=== PATIENT | male | born 1950 | race Caucasian/White ===

== ENCOUNTER → 2018-09-26 | Outpatient (CLI) | payer MEDICARE ==
[2018-09-26 12:09] LABS: Basophils % (A) 1 %; Eosinophils # (A) 0.1 k/uL (0-0.7); Eosinophils % (A) 2 %; HCT 43.4 % (39.0-53.0); HGB 14.4 gm/dL (13.0-17.5); Lymphocytes # (A) 1.3 k/uL (1.0-4.8); Lymphocytes % (A) 27 %; MCH 31.1 pg (25.0-35.0); MCHC 33.3 g/dL (31.0-37.0); MCV 93.5 fL (80.0-100.0); Mean Platelet Volume 7.4; Monocytes # (A) 0.4 k/uL (0-1.0); Monocytes % (A) 8 %; Neutrophils # (A) 2.8 k/uL (1.3-7.7); Neutrophils % (A) 59 %; Platelet Count 238 k/uL (150-450); RBC 4.64 m/uL (4.30-5.90); RDW 13.3 % (11.5-15.5); WBC 4.7 k/uL (3.8-10.6)
[2018-09-26 12:18] LABS: Anion Gap 7 mmol/L; Blood Urea Nitrogen 20 mg/dL (9-20); Calcium 9.8 mg/dL (8.4-10.2); Carbon Dioxide 29 mmol/L (22-30); Chloride 103 mmol/L (98-107); Glucose 84 mg/dL (74-99); Potassium 4.7 mmol/L (3.5-5.1); Sodium 139 mmol/L (137-145)
[2018-09-26 12:19] LABS: INR 1.1 (<1.2); Prothrombin Time 11.5 sec (9.0-12.0)
== END | disposition home or self-care (01) ==
LOC: LABWHC1 11:00
PROVIDERS: ATTEND Internal Medicine
DX: I48.91 Unspecified atrial fibrillation (principal)
CPT/HCPCS: 36415; 80048; 85025; 85610

== ENCOUNTER 2021-01-13 03:14 | Observation (INO) | payer MEDICARE ==
--- NOTE | 2021-01-13 03:48 | ED ---
Chest Pain HPI - General Chief Complaint: Shortness of Breath Stated Complaint: upper abdominal pain Time Seen by Provider: 01/13/21 03:25 Source: patient Mode of arrival: ambulatory Limitations: no limitations - History of Present Illness Initial Comments: This patient is 70-year-old man with history of chronic atrial fibrillation, presenting to be evaluated for substernal chest pain. He states that the pain has been present couple of hours tonight. It developed volume was lying in bed. It is substernal/epigastric. He states he also noted palpitations and that pain seemed worse when heart was racing. There was some associated nausea Patient denies dyspnea, diaphoresis, lightheadedness or syncope. Patient did take antacid and Tylenol but the symptoms remain. He had similar episode yesterday, took the same medications and the pain resolved. MD Complaint: chest pain -: hour(s) Onset: during rest Pain Location: epigastric Pain Radiation: none Severity scale (1-10): 6 Quality: dull Consistency: constant Improves With: nothing Worsens With: nothing Anginal Symptoms: nausea Treatments Prior to Arrival: other (Tylenol/antacid) - Related Data On Oral Contraceptives: No Allergies Allergy/AdvReac Type Severity Reaction Status Date / Time No Known Allergies Allergy Verified 01/13/21 03:24 Review of Systems ROS Statement: Those systems with pertinent positive or pertinent negative responses have been documented in the HPI. ROS Other: All systems not noted in ROS Statement are negative. Constitutional: Denies: fever, chills Respiratory: Reports: dyspnea. Denies: cough Cardiovascular: Reports: chest pain, palpitations. Denies: edema, syncope Gastrointestinal: Reports: nausea. Denies: abdominal pain, vomiting, diarrhea Genitourinary: Denies: dysuria Musculoskeletal: Denies: back pain Skin: Denies: rash Neurological: Denies: headache, weakness EKG Findings - EKG Results: EKG: interpreted by ERMD, normal axis, normal QRS, normal ST/T EKG shows: atrial fibrillation Past Medical History Past Medical History: Atrial Fibrillation, Hyperlipidemia, Hypertension, Rheumatoid Arthritis (RA) History of Any Multi-Drug Resistant Organisms: None Reported Past Surgical History: Appendectomy, Hernia Repair Smoking Status: Former smoker Past Alcohol Use History: Occasional Past Drug Use History: None Reported General Exam Limitations: no limitations General appearance: alert, in no apparent distress Head exam: Present: atraumatic, normocephalic Eye exam: Present: normal appearance. Absent: scleral icterus, conjunctival injection ENT exam: Present: normal oropharynx Neck exam: Present: normal inspection Respiratory exam: Present: normal lung sounds bilaterally. Absent: respiratory distress, wheezes, rales, rhonchi, stridor Cardiovascular Exam: Present: irregular rhythm, normal heart sounds. Absent: systolic murmur, diastolic murmur, rubs, gallop GI/Abdominal exam: Present: soft. Absent: distended, tenderness, guarding, rebound, rigid, mass Extremities exam: Present: normal inspection, normal capillary refill. Absent: pedal edema, calf tenderness Back exam: Present: normal inspection. Absent: CVA tenderness (R), CVA tenderness (L) Neurological exam: Present: alert Skin exam: Present: warm, dry, intact, normal color. Absent: rash Course Vital Signs 01/13/21 01/13/21 01/13/21 03:18 04:09 05:00 Temperature 98.0 F Pulse Rate 89 91 Respiratory 20 18 18 Rate Blood Pressure 116/85 110/76 O2 Sat by Pulse 98 Oximetry 01/13/21 06:00 Temperature Pulse Rate 98 Respiratory 18 Rate Blood Pressure 106/81 O2 Sat by Pulse Oximetry Chest Pain MDM - MDM Patient is 70-year-old man with 2 episodes of chest pain over the past couple of days. While here in emergency department, his symptoms have resolved and he is symptom-free now. 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 I did discuss with the transfer team at [facility] and at this time they are not accepting elective transfers, only those requiring higher level of care. Discussed this with patient and family and they'll be admitted here for further workup. Disposition Clinical Impression: Chest pain, Atrial fibrillation Disposition: ADMITTED IP TO THIS HOSP Condition: Fair Referrals: Usman Quintanilla DO [Primary Care Provider] - 1-2 days
[2021-01-13 04:22] LABS: Basophils % (A) 0 %; Eosinophils # (A) 0.2 k/uL (0-0.7); Eosinophils % (A) 2 %; HCT 47.3 % (39.0-53.0); HGB 15.8 gm/dL (13.0-17.5); Lymphocytes # (A) 1.5 k/uL (1.0-4.8); Lymphocytes % (A) 18 %; MCH 32.9 pg (25.0-35.0); MCHC 33.4 g/dL (31.0-37.0); MCV 98.3 fL (80.0-100.0); Mean Platelet Volume 7.9; Monocytes # (A) 0.5 k/uL (0-1.0); Monocytes % (A) 6 %; Neutrophils % (A) 72 %; Platelet Count 210 k/uL (150-450); RBC 4.81 m/uL (4.30-5.90); RDW 13.6 % (11.5-15.5); WBC 8.4 k/uL (3.8-10.6)
[2021-01-13 04:36] LABS: ALT 18 U/L (4-49); AST 26 U/L (17-59); African American GFR (CKD) >90 (>60 ml/min/1.73 sqM); Albumin 4.2 g/dL (3.5-5.0); Alkaline Phosphatase 55 U/L (38-126); Amylase 75 U/L (30-110); Anion Gap 9 mmol/L; Blood Urea Nitrogen 19 mg/dL (9-20); Calcium 10.1 mg/dL (8.4-10.2); Carbon Dioxide 22 mmol/L (22-30); Chloride 106 mmol/L (98-107); Glucose 106 mg/dL (74-99); Lipase 281 U/L (23-300); Magnesium 1.9 mg/dL (1.6-2.3); Non-African American GFR(CKD) 86 (>60 ml/min/1.73 sqM); Potassium 4.1 mmol/L (3.5-5.1); Sodium 137 mmol/L (137-145); Total Bilirubin 1.2 mg/dL (0.2-1.3); Total Protein 6.6 g/dL (6.3-8.2)
[2021-01-13 04:41] LABS: Partial Thromboplastin Time 24.4 sec (22.0-30.0); Prothrombin Time 11.1 sec (9.0-12.0)
--- NOTE | 2021-01-13 05:10 | XR ---
EXAMINATION TYPE: XR chest 1V portable DATE OF EXAM: 01/13/2021 COMPARISON: NONE HISTORY: Chest pain TECHNIQUE: Single view FINDINGS: Heart appears enlarged. There is no heart failure. There are chest leads. Costophrenic angl es are clear. IMPRESSION: No active cardiopulmonary disease.
[2021-01-13 06:21] VITALS: RESP 18
[2021-01-13] MEDS ORDERED: NITROGLYCERIN SL TABS 0.4 MG TAB SUBLINGUAL PRN (06:46)
[2021-01-13] MEDS ORDERED: SODIUM CHLORIDE 0.9% 1,000 ML IV SCH (07:00)
[2021-01-13] MEDS ORDERED: APIXABAN 5 MG TAB PO SCH (09:15)
[2021-01-13] MEDS ORDERED: METOPROLOL SUCCINATE (ER) 100 MG TAB.ER.24H PO SCH (09:15)
[2021-01-13] MEDS ORDERED: LOSARTAN 50 MG TAB PO SCH (09:15)
--- NOTE | 2021-01-13 10:12 | P.CRDCN ---
History of Present Illness History of present illness: HISTORY OF PRESENTING ILLNESS This is a pleasant 70-year-old male past medical history significant for persistent atrial fibrillation, non-ischemic cardiomyopathy EF around 35% per patient From Echocardiogram in November 2020, mitral valve prolapse, hypertension, hyperlipidemia, ventricular tachycardia. He follows with a photographer model at [facility] Dr. Leonardo. We have been asked to see in consultation for chest pain. Patient is seen and examined at bedside. Patient states Monday night going into Monday had midsternal chest pain. Describes it as a pressure. Woke him up that night. Non-radiating. Non-exertional. States he thought it was indigestion and took Tums, with no relief. He then took some Tylenol and did have some relief. Monday night going into Monday night he had similar symptoms, however, this time Tylenol and Tums did not help relieve and he decided to present to the emergency department. He did have associated nausea. He denies associated symptoms of diaphoresis, palpitations, shortness of breath. No specific alleviating or aggravating factors. He denies symptoms of orthopnea, PND, lower extremity edema, fatigue, weakness, lightheadedness, syncope. Denies alcohol use. Used tobacco in high school, non smoker currently. He denies history of [place], Stroke, Diabetes, or coronary artery disease. He states he had an echocardiogram in early November 2020, and was told his ejection fraction decreased to around 35%. His hydrochlorothiazide was discontinued. He also was told his atrial fibrillation was not controlled and his beta hernandez was increased. He staes his last cardiac catheterization was in 2015, which he was told had normal coronary arteries. He states his last stress test was about 3 years ago, he has only undergone stress echo tests and he has a history of having ventricular tachycardia, and his stress test needs to be ended early. He also recently has had a 2 week monitor completed and has a follow up appointment with EP on MondayJanuary 18. DIAGNOSTICS EKG reveals atrial fibrillation, heart rate 93, PVC, no evidence of ischemia. No prior EKG to compare Telemetry tracings indicate atrial fibrillation with controlled ventricular rates Chest xray no acute cardiopulmonary process. Laboratory reviewed, troponin negative 2, CBC unremarkable, sodium 137, potassium 4.1, BUN 19, serum creatinine 0.9, liver enzymes within normal limits, magnesium 1.9, proBNP 1440, lipase within normal limits, amylase within normal limits, COVID-19 PCR negative Current home cardiac medications include Eliquis 5 mg twice a day, olmesartan 10 mg daily, simvastatin 20 mg nightly, metoprolol succinate 100 mg twice a day REVIEW OF SYSTEMS At the time of my exam: CONSTITUTIONAL: Denies fever or chills. CARDIOVASCULAR: +epigastric/midsternal chest pain, Denies shortness of breath, orthopnea, PND or palpitations. RESPIRATORY: Denies cough. GASTROINTESTINAL: +nausea Denies abdominal pain, diarrhea, constipation, vomiting. MUSCULOSKELETAL: Denies myalgias. NEUROLOGIC: Denies numbness, tingling, headacbe or weakness. ENDOCRINE: Denies fatigue, weight change, polydipsia or polyurina. GENITOURINARY: Denies burning, hematuria or urgency with micturation. HEMATOLOGIC: Denies history of anemia or bleeding. PHYSICAL EXAMINATION Blood pressure 118/78 heart rate 110 afebrile and maintaining oxygen saturation 97% on room air CONSTITUTIONAL: No apparent distress. HEENT: Head is normocephalic. Pupils are equal, round. Sclerae anicteric. Mucous membranes of the mouth are moist. No JVD. No carotid bruit. CHEST EXAMINATION: Lungs are clear to auscultation. No chest wall tenderness is noted on palpation or with deep breathing. HEART EXAMINATION: Irregular rate and rhythm. S1, S2 heard. Systolic murmur at apex ABDOMEN: Soft, nontender. Positive bowel sounds. EXTREMITIES: 2+ peripheral pulses, no lower extremity edema and no calf tend erness. SKIN: no rashes or wounds present NEUROLOGIC EXAMINATION: Patient is awake, alert and oriented x3. ASSESSMENT Chest pain, atypical Persistent atrial fibrillation on Eliquis Hypertension Hyperlipidemia History of Nonischemic cardiomyopathy Former tobacco use PLAN An acute coronary event has been ruled out with no EKG evidence of ischemia and negative cardiac enzymes. Obtain Ultrasound of Gallbladder No further cardiac testing at this time. Patient with recent Echocardiogram November 26. He also recently has had a 2 week monitor completed and has a follow up appointment with EP on MondayJanuary 18. If Ultrasound, with no acute findings, ok to discharge from cardiology perspective, and patient can follow up with Dr. Leonardo as an outpatient. Follow up with primary photographer model Dr. Leonardo Thank you kindly for this consultation. Nurse Practitioner note has been reviewed, I agree with a documented findings and plan of care. Patient was seen and examined. Past Medical History Past Medical History: Atrial Fibrillation, Hyperlipidemia, Hypertension, Rheumatoid Arthritis (RA) History of Any Multi-Drug Resistant Organisms: None Reported Past Surgical History: Appendectomy, Hernia Repair Smoking Status: Former smoker Past Alcohol Use History: Occasional Past Drug Use History: None Reported Medications and Allergies Home Medications Medication Instructions Recorded Confirmed Type Apixaban [Eliquis] 5 mg PO BID 01/13/21 01/13/21 History Cholecalciferol [Vitamin D3 (25 100 mcg PO W/SUPPER 01/13/21 01/13/21 History Mcg = 1000 Iu)] Metoprolol Succinate (ER) [Toprol 100 mg PO BID 01/13/21 01/13/21 History XL] Multivit-Min/FA/Lycopen/Lutein 1 tab PO W/SUPPER 01/13/21 01/13/21 History [Centrum Silver Men Tablet] Niacin (Inositol Niacinate) 500 mg PO W/SUPPER 01/13/21 01/13/21 History [Niacin 500 mg Capsule] Olmesartan Medoxomil 10 mg PO DAILY 01/13/21 01/13/21 History Simvastatin [Zocor] 20 mg PO HS 01/13/21 01/13/21 History Allergies Allergy/AdvReac Type Severity Reaction Status Date / Time No Known Allergies Allergy Verified 01/13/21 07:09 Physical Exam Vitals: Vital Signs Temp Pulse Resp BP Pulse Ox 01/13/21 07:18 101 H 18 106/86 95 01/13/21 06:00 98 18 106/81 01/13/21 05:00 91 18 110/76 01/13/21 04:09 18 01/13/21 03:18 98.0 F 89 20 116/85 98 Intake and Output 01/12/21 01/13/21 01/13/21 22:59 06:59 14:59 Other: Weight 97.522 kg Results 01/13/21 03:37 01/13/21 03:37 Cardiac Enzymes 01/13/21 01/13/21 Range/Units 03:37 03:37 AST 26 (17-59) U/L Troponin I <0.012 (0.000-0.034) ng/mL Coagulation 01/13/21 Range/Units 03:37 PT 11.1 (9.0-12.0) sec APTT 24.4 (22.0-30.0) sec CBC 01/13/21 Range/Units 03:37 WBC 8.4 (3.8-10.6) k/uL RBC 4.81 (4.30-5.90) m/uL Hgb 15.8 (13.0-17.5) gm/dL Hct 47.3 (39.0-53.0) % Plt Count 210 (150-450) k/uL Comprehensive Metabolic Panel 01/13/21 Range/Units 03:37 Sodium 137 (137-145) mmol/L Potassium 4.1 (3.5-5.1) mmol/L Chloride 106 (98-107) mmol/L Carbon Dioxide 22 (22-30) mmol/L BUN 19 (9-20) mg/dL Creatinine 0.90 (0.66-1.25) mg/dL Glucose 106 H (74-99) mg/dL Calcium 10.1 (8.4-10.2) mg/dL AST 26 (17-59) U/L ALT 18 (4-49) U/L Alkaline Phosphatase 55 (38-126) U/L Total Protein 6.6 (6.3-8.2) g/dL Albumin 4.2 (3.5-5.0) g/dL Current Medications Generic Name Dose Route Start Last Admin Trade Name Freq PRN Reason Stop Dose Admin Aspirin 325 mg 01/14/21 09:00 Aspirin 325 Mg Tab PO DAILY ALYSON Sodium Chloride 1,000 mls @ 20 mls/hr 01/13/21 07:00 01/13/21 07:16 Saline 0.9% IV 20 mls/hr .Q24H ALYSON Administration Nitroglycerin 0.4 mg 01/13/21 06:46 Nitroglycerin Sl Tabs 0.4 Mg Tab SUBLINGUAL Q5M PRN Chest Pain Intake and Output 01/12/21 01/13/21 01/13/21 22:59 06:59 14:59 Other: Weight 97.522 kg 01/13/21 03:37 01/13/21 03:37
[2021-01-13 14:49] VITALS: BP 125/67; PULSE 109; TEMP 97.6
--- NOTE | 2021-01-13 15:05 | US ---
EXAMINATION TYPE: US gallbladder DATE OF EXAM: 01/13/2021 COMPARISON: Abdominal x-ray 2014 CLINICAL HISTORY: epigastric pain, nausea. previous one other episode of epigastric pain noted during night; AFIB per patient. EXAM MEASUREMENTS: Liver Length: 15.4 cm Gallbladder Wall: 0.6 cm CBD: 0.5 cm Right Kidney: 11.4 x 5.0 x 4.8 cm Pancreas: hyperechoic, tail obscured by overlying bowel gas Liver: right lobe liver cyst seen = 1.4 x 1.5 x 1.5cm Gallbladder: mildly echogenic contents suggestive of sludge; hyperechoic focus seen mid wall suggest s wall polyp; thickened wall is noted throughout Evidence for sonographic Pérez's sign: no CBD: wnl Right Kidney: No hydronephrosis or masses seen Visualized pancreas appears within normal limits. Visualized liver shows incidental 1.4 cm thin-soni d cyst. No shadowing mobile gallstones. No right-sided hydronephrosis. Possible focal hyper cholester olosis. Mild areas of wall thickening up to 6 mm. IMPRESSION: No shadowing mobile gallstones. 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 Cannot exclude slud ge. No convincing ultrasound evidence for acute cholecystitis. Consider HIDA scan if clinical suspici on persists.
--- NOTE | 2021-01-13 19:44 | HP ---
HISTORY AND PHYSICAL HISTORY AND PHYSICAL AND DISCHARGE SUMMARY.: CHIEF COMPLAINT: Epigastric pain. HISTORY OF PRESENT ILLNESS: This 70-year-old gentleman with a past medical history of multiple medical problems including atrial fibrillation, history of hypertension, hyperlipidemia, history of rheumatoid arthritis, being followed by Dr. Quintanilla and Cardiology elsewhere, was admitted with lower chest pain and epigastric pain. The patient was evaluated by Cardiology. Cardiology recommended continued outpatient followup. An ultrasound of the gallbladder did not show any acute abnormality, but reported sludge cannot be ruled out. Recommended outpatient HIDA scan at this time. The patient was seen by medical leader and as well as Cardiology at [facility]. The patient is on Eliquis. There is no history of fever, rigors, headache, loss of consciousness or seizures at this time. PAST MEDICAL HISTORY: History of atrial fibrillation, hypertension, history of hyperlipidemia, rheumatoid arthritis, appendectomy, hernia repair, cardiac catheterization March 2016, cardioversion. MEDICATION: Home medications are: Niacin, multivitamin, cholecalciferol, Zocor. Olmesartan, Metoprolol, Eliquis. ALLERGIES: None. FAMILY HISTORY: No history of heart disease or strokes in the family. SOCIAL HISTORY: No history of smoking. Occasional alcohol. REVIEW OF SYSTEMS: ENT: No diminished hearing. No diminished vision. CARDIOVASCULAR system: As mentioned earlier. RESPIRATION as mentioned earlier. GI: As mentioned earlier. : No dysuria or hematuria. NERVOUS SYSTEM: No numbness, weakness. ALLERGY/IMMUNOLOGY: No asthma or hayfever. MUSCULOSKELETAL: As mentioned earlier. HEMATOLOGY/ONCOLOGY: No history of anemia. ENDOCRINE: No history of diabetes or hypothyroidism. CONSTITUTIONAL: As mentioned earlier. DERMATOLOGY: Negative. RHEUMATOLOGY negative. PSYCHIATRIC: As mentioned earlier. PHYSICAL EXAMINATION: The patient is alert and oriented times three. Pulse 109, blood pressure 120/56, respiration 18, temperature 97.6, pulse ox 94% on room air. HEENT: Conjunctivae normal. NECK: No JVD. CARDIOVASCULAR: S1, S2 muffled. RESPIRATION: Breath sounds diminished in the bases. Scattered rhonchi. No crackles. ABDOMEN: Soft, nontender. No mass palpable. LEGS: No edema. No swelling. NERVOUS SYSTEM: Higher functions as mentioned earlier. Moves all 4 limbs. No focal motor or sensory deficits. LYMPHATICS: No lymph nodes palpable in the neck, axillae or groin. SKIN: No ulcer, no rash and no bleeding. JOINTS: No active deforming arthropathy. LABS: CBC within normal limits and glucose 106. Other labs are noted. Troponins are negative. ASSESSMENT: 1. Chest pain and epigastric pain, myocardial infarction ruled out, possible gastroesophageal reflux disease. 2. 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 No acute abnormality. 3. Persistent atrial fibrillation. 4. Hypertension. 5. Hyperlipidemia. 6. History of nonischemic cardiomyopathy. 7. History of nicotine dependence. RECOMMENDATIONS AND DISCUSSION: This 70-year-old gentleman who presented with multiple medical issues. I recommend to continue the current medications, symptomatic treatment. Otherwise, I would also recommend follow up with garnetter at [facility] as recommended by Cardiology here. Otherwise, resume the home medications. Recommend a short course of proton pump inhibitors. Outpatient HIDA scan to completely rule out any gallbladder pathology because of the gallbladder ultrasound report here. Otherwise, the prognosis guarded because of multiple complex medical issues. Discussed with the patient and family who understands and agrees. A copy of dictation being forwarded to Dr. Quintanilla who is the primary physician. MMODL / IJN: [id number] /
[2021-01-13] MEDS ORDERED: ATORVASTATIN 10 MG TAB PO SCH (21:00)
[2021-01-14] MEDS ORDERED: ASPIRIN 325 MG TAB PO SCH (09:00)
== END 2021-01-13 18:35 | disposition home or self-care (01) ==
LOC: EC 03:14 → 6NMEDSUR 06:46
PROVIDERS: ADMIT Hospitalist; ATTEND Hospitalist
DX: R07.89 Other chest pain (principal); R10.13 Epigastric pain; R11.0 Nausea; I48.19 Other persistent atrial fibrillation; E78.5 Hyperlipidemia, unspecified; I34.1 Nonrheumatic mitral (valve) prolapse; I42.8 Other cardiomyopathies; I47.2 Ventricular tachycardia; I10 Essential (primary) hypertension; I49.3 Ventricular premature depolarization; M06.9 Rheumatoid arthritis, unspecified; Z20.822 Contact with and (suspected) exposure to COVID-19; Z79.01 Long term (current) use of anticoagulants; Z79.899 Other long term (current) drug therapy; Z90.49 Acquired absence of other specified parts of digestive tract; Z87.891 Personal history of nicotine dependence; Z98.890 Other specified postprocedural states
CPT/HCPCS: 99285; 36415; 93005; 83880; 80053; 82150; 83690; 83735; 84484; 85025; 85610; 85730; 87635; 71045; 76705; G0378